=== PATIENT | male | born 1930 | race Caucasian/White ===

== ENCOUNTER 2017-06-09 10:40 | Inpatient (IN) | payer MEDICARE, BC ==
[2017-06-09] MEDS ORDERED: ASPIRIN EC 81 MG PO SCH (10:51)
[2017-06-09] MEDS ORDERED: ASPIRIN 81 MG CHEWABLE CTB ONE (10:52)
[2017-06-09] MEDS ORDERED: NITROGLYCERIN 0.4 MG TAB SL PRN (10:53)
[2017-06-09] MEDS ORDERED: ONDANSETRON HCL 4 MG/2 ML SOL IV ONE (11:02)
[2017-06-09] MEDS ORDERED: MORPHINE SULFATE 10 MG/ML SOL IV ONE ×2 (11:02→11:27)
[2017-06-09] MEDS: SODIUM CHLORIDE 0.9% FLUSH 10 ML SOL IV PRN ×3 (11:10→12:10)
[2017-06-09 11:11] LABS: BASOPHILS % (AUTO) 1 % (0-3); EOSINOPHILS % (AUTO) 3 % (0-9); HEMATOCRIT 42 % (39-53); MEAN CORPUSCULAR HGB CONC 33.7 gm/dl (32.0-36.0); MEAN CORPUSCULAR VOLUME 96 fL (80-100); MONOCYTES % (AUTO) 9.1 % (0-12); NEUTROPHILS % (AUTO) 67.4 % (37-80)
[2017-06-09] MEDS ORDERED: MORPHINE SULFATE 10 MG/ML SOL ONE ×2 (11:13→11:28)
[2017-06-09] MEDS ORDERED: ONDANSETRON HCL 4 MG/2 ML SOL ONE ×2 (11:13→11:17)
[2017-06-09 11:35] LABS: ALBUMIN 3.6 gm/dl (3.4-5.0); ALT 21 IU/L (14-63); CALCIUM 8.9 mg/dl (8.5-10.1); GLOM FILT RATE 52 mL/min (>60); POTASSIUM 3.9 mMol/L (3.5-5.1); SODIUM 138 mMol/L (136-145)
[2017-06-09] MEDS ORDERED: SODIUM CHLORIDE 0.9% 1000ML 1,000 ML IV ONE (11:43)
[2017-06-09] MEDS ORDERED: ENOXAPARIN 100 MG SOL SC ONE (11:48)
[2017-06-09] MEDS ORDERED: ACETAMINOPHEN 325 MG PO ONE (12:59)
[2017-06-09] MEDS ORDERED: ACETAMINOPHEN 325 MG ONE (13:00)
[2017-06-09] MEDS ORDERED: ENOXAPARIN 100 MG SOL SC SCH (14:15)
[2017-06-09] MEDS ORDERED: PATIENT EDUCATION 1 MISC PRN (15:06)
[2017-06-09] MEDS: ENOXAPARIN 100 MG SOL SC SCH ×2 (15:56→23:40)
[2017-06-09] MEDS: NOVOLOG FLEXPEN SC SCH ×2 (16:51→21:14)
[2017-06-09] MEDS ORDERED: WARFARIN SODIUM 5 MG TAB PO SCH (18:00)
[2017-06-09 23:38] VITALS: PULSE 67
[2017-06-10 07:33] LABS: CALCIUM 8.5 mg/dl (8.5-10.1); POTASSIUM 4.1 mMol/L (3.5-5.1)
[2017-06-10 08:33] VITALS: BP 167/61; RESP 18; TEMP 97; O2SAT 94
[2017-06-10] MEDS ORDERED: ISOSORBIDE MONONITRATE 30 MG TER PO SCH (09:00)
[2017-06-10] MEDS ORDERED: METOPROLOL TARTRATE 50 MG TAB PO SCH (09:00)
[2017-06-10] MEDS ORDERED: DILTIAZEM XR 180 MG C24 PO SCH (09:00)
[2017-06-10] MEDS ORDERED: PANTOPRAZOLE SODIUM 40 MG ECT PO SCH (09:00)
[2017-06-10] MEDS ORDERED: LISINOPRIL 20 MG TAB PO SCH (09:00)
[2017-06-10] MEDS ORDERED: ASPIRIN 81 MG CHEWABLE CTB PO SCH (09:00)
[2017-06-10] MEDS ORDERED: CLONIDINE 0.1 MG TAB PO SCH (09:00)
[2017-06-10] MEDS ORDERED: HYDROCHLOROTHIAZIDE 25 MG TAB PO SCH (09:00)
[2017-06-10] MEDS: ENOXAPARIN 100 MG SOL SC SCH (11:25)
== END 2017-06-10 14:30 | disposition home or self-care (01) | DRG 176 ==
LOC: ED 10:40 → ACUTE CARE 13:34 → UNDOADMIN 13:34 → ACUTE CARE 14:10
PROVIDERS: ADMIT Family Medicine; ATTEND Family Medicine
DX: I26.99 Other pulmonary embolism without acute cor pulmonale (principal); E11.9 Type 2 diabetes mellitus without complications; Z86.2 Personal history of diseases of the blood and blood-forming organs and certain disorders involving the immune mechanism; I25.10 Atherosclerotic heart disease of native coronary artery without angina pectoris
CPT/HCPCS: 36415; 71010; 71275; 80048; 80053; 82550; 82962; 84484; 85025; 85378; 85610; 93005; 96365; 96372; 96374; 96375; 99285; J1650; J2270; J2405; Q9967

== ENCOUNTER 2017-08-08 04:33 | Emergency (ER) | payer MEDICARE, BC ==
[2017-08-08 04:39] VITALS: RESP 20; TEMP 96.7; O2SAT 97
[2017-08-08 04:52] VITALS: BP 161/60; PULSE 65
== END 2017-08-08 05:04 | disposition home or self-care (01) | DRG 923 ==
LOC: ED 04:33
DX: Z04.3 Encounter for examination and observation following other accident (principal); Z79.01 Long term (current) use of anticoagulants; W06.XXXA Fall from bed, initial encounter
CPT/HCPCS: 99282

== ENCOUNTER 2017-12-12 16:24 | Inpatient (IN) | payer MEDICARE, BC ==
[2017-12-12] MEDS: LABETALOL HYDROCHLORIDE 5 MG/ML SOL IV PRN ×2 (16:55→21:37)
[2017-12-12] MEDS: SODIUM CHLORIDE 0.9% FLUSH 10 ML SOL IV SCH (16:55)
[2017-12-12] MEDS ORDERED: NITROGLYCERIN 0.4 MG TAB SL PRN (18:00)
[2017-12-12] MEDS ORDERED: WARFARIN SODIUM 5 MG TAB PO SCH (18:00)
[2017-12-12] MEDS: METOPROLOL TARTRATE 25 MG TAB PO SCH (20:40)
[2017-12-13] MEDS: SODIUM CHLORIDE 0.9% FLUSH 10 ML SOL IV SCH ×3 (01:13→10:30)
[2017-12-13] MEDS: LABETALOL HYDROCHLORIDE 5 MG/ML SOL IV PRN ×2 (01:13→10:29)
[2017-12-13 04:46] VITALS: O2SAT 93
[2017-12-13 08:25] VITALS: PULSE 67; RESP 22; TEMP 97.4
[2017-12-13] MEDS: METOPROLOL TARTRATE 25 MG TAB PO SCH (08:40)
[2017-12-13] MEDS ORDERED: HYDROCHLOROTHIAZIDE 25 MG TAB PO SCH ×2 (09:00)
[2017-12-13] MEDS ORDERED: DILTIAZEM HCL 180 MG PO SCH (09:00)
[2017-12-13] MEDS ORDERED: ISOSORBIDE MONONITRATE 30 MG TER PO SCH (09:00)
[2017-12-13] MEDS ORDERED: PANTOPRAZOLE SODIUM 40 MG ECT PO SCH (09:00)
[2017-12-13] MEDS ORDERED: LISINOPRIL 20 MG TAB PO SCH (09:00)
[2017-12-13] MEDS ORDERED: DILTIAZEM ER 120 MG C24 PO SCH (09:00)
[2017-12-13] MEDS ORDERED: GABAPENTIN 300 MG CAP PO SCH (09:00)
[2017-12-13] MEDS ORDERED: CLOPIDOGREL 75 MG TAB PO SCH (09:00)
[2017-12-13 11:01] VITALS: BP 153/61
[2017-12-15] MEDS ORDERED: WARFARIN SODIUM 5 MG TAB PO SCH (17:00)
== END 2017-12-13 13:00 | disposition home or self-care (01) | DRG 313 ==
LOC: ACUTE CARE 16:27
PROVIDERS: ADMIT Family Medicine; ATTEND Family Medicine
DX: R07.9 Chest pain, unspecified (principal); I25.810 Atherosclerosis of coronary artery bypass graft(s) without angina pectoris; I10 Essential (primary) hypertension
CPT/HCPCS: 82962; 84484; 93012; A9270-GY; J3490

== ENCOUNTER 2018-09-08 16:54 | Emergency (ER) | payer MEDICARE, BC ==
[2018-09-08] MEDS: NITROGLYCERIN 0.4 MG TAB SL PRN ×2 (16:58→17:02)
[2018-09-08] MEDS ORDERED: ASPIRIN 81 MG CHEWABLE CTB PO STA (17:01)
[2018-09-08 17:03] LABS: BASOPHILS % (AUTO) 1 % (0-3); EOSINOPHILS % (AUTO) 3 % (0-9); HEMATOCRIT 43 % (39-53); HEMOGLOBIN 14.5 gm/dl (13.5-17.7); LYMPHOCYTES % (AUTO) 38.6 % (10-50); MEAN CORPUSCULAR HEMOGLOBIN 32.2 pg (27.0-32.0); MEAN CORPUSCULAR HGB CONC 33.9 gm/dl (32.0-36.0); MEAN CORPUSCULAR VOLUME 95 fL (80-100); MONOCYTES % (AUTO) 8.5 % (0-12); NEUTROPHILS % (AUTO) 48.7 % (37-80)
[2018-09-08 17:07] VITALS: TEMP 98.2
[2018-09-08 17:16] VITALS: O2SAT 96
[2018-09-08 17:18] LABS: INR 1.79 (0.86-1.12)
[2018-09-08 17:24] LABS: BLOOD UREA NITROGEN 32 mg/dl (7-18); CALCIUM 8.9 mg/dl (8.5-10.1); CARBON DIOXIDE 22.6 mEq/L (21-32); CHLORIDE 100 mMol/L (98-107); CREATININE 1.49 mg/dl (0.80-1.30); GLUCOSE 201 mg/dl (74-106); POTASSIUM 3.9 mMol/L (3.5-5.1); SODIUM 136 mMol/L (136-145); TROP I < 0.017 ng/ml (0.000-0.056)
[2018-09-08] MEDS ORDERED: IBUPROFEN 400 MG TAB PO ONE (17:33)
[2018-09-08] MEDS ORDERED: SODIUM CHLORIDE 0.9% 1000ML 1,000 ML IV ONE (17:40)
[2018-09-08] MEDS ORDERED: IBUPROFEN 400 MG TAB ONE (17:42)
[2018-09-08 19:34] VITALS: BP 152/66; PULSE 66; RESP 23
== END 2018-09-08 19:51 | disposition home or self-care (01) | DRG 313 ==
LOC: ED 16:54
DX: R07.89 Other chest pain (principal); N17.9 Acute kidney failure, unspecified
CPT/HCPCS: 71045; 80048; 84484; 85025; 85610; 85730; 93005; 96365; 96366; 99284; A9270-GY

== ENCOUNTER 2019-02-10 15:00 | Emergency (ER) | payer MEDICARE, BC ==
[2019-02-10 15:36] VITALS: RESP 16; TEMP 96.8
[2019-02-10 16:15] VITALS: BP 143/78; PULSE 88; O2SAT 96
== END 2019-02-10 15:55 | disposition home or self-care (01) | DRG 153 ==
LOC: ED 15:00
DX: J06.9 Acute upper respiratory infection, unspecified (principal); Z79.01 Long term (current) use of anticoagulants
CPT/HCPCS: 99282